=== PATIENT | male | born 1975 | race Caucasian/White ===

== ENCOUNTER 2022-10-17 19:40 | Emergency (ER) | payer OTHER | END 2022-10-17 20:39 | disposition home or self-care (01) | LOC: ED 19:40 | DX: L03.115 Cellulitis of right lower limb (principal); L02.415 Cutaneous abscess of right lower limb ==

== ENCOUNTER 2024-01-04 08:17 | Emergency (ER) | payer OTHER ==
[~2024-01-04] VITALS: Ht 170.2 cm; Wt 70.0 kg
[~2024-01-04 08:17] MED LIST: AMOX TR-K CLV1 EAC1 PO
[2024-01-04 09:06] LABS: EOSINOPHILS 2.6 % (0-6); HEMATOCRIT 43.5 % (35.0-50.0); HEMOGLOBIN 14.5 g/dL (12.0-18.0); LYMPHOCYTES 31.3 % (24-44); MCH 32.3 (27-36); MCHC 33.3 g/dl (30-36); MCV 97.1 fl (81-99); MONOCYTES 8.3 % (0-12); NEUTROPHILS 56.8 % (39-80); PLATELET COUNT 308 K/uL (140-440); RBC 4.48 M/ul (4.3-5.7); RDW 15.9 (10.5-15.0)
[2024-01-04] MEDS ORDERED: LINEZOLID600 MG PO ×2 (09:15→13:34)
[2024-01-04] MEDS ORDERED: ESCITALOPRAM OX20 MG PO (09:15)
[2024-01-04] MEDS ORDERED: HYDROXYZINE PAM25 MG PO (09:15)
[2024-01-04 09:25] LABS: ALBUMIN 3.1 g/dL (3.4-5.0); ALBUMIN/GLOBULIN RATIO 0.67 (1.1-2.4); ANION GAP 10.6 (7-21); BILIRUBIN, TOTAL 0.2 ng/dL (0.2-1.0); BUN/CREATININE RATIO 8.79 (6.0-28.6); CALCIUM 9.4 mg/dL (8.5-10.1); CREATININE, SERUM 0.91 mg/dL (0.70-1.30); POTASSIUM 4.6 mmol/L (3.5-5.1); PROTEIN, TOTAL 7.7 g/dL (6.4-8.2)
[2024-01-04 09:29] LABS: LACTIC ACID, BLOOD 1.2 mmol/L (0.4-2.0)
[2024-01-04 12:00] LABS: CRYSTALS, SYNOVIAL FLUID NONE SEEN; MONONUCLEAR CELLS, SYNOVIAL FL 29; PMNS, SYNOVIAL FLUID 71; RBC, SYOVIAL FLUID 750; WBC, SYNOVIAL FLUID 33750
[2024-01-04 13:45] VITALS: BP 117/70
[2024-01-05 19:35] LABS: GLUCOSE FLUID SOURCE Synovial fluid (()); GLUCOSE,BODY FLUID 80 mg/dL (())
== END 2024-01-04 13:45 | disposition home or self-care (01) ==
LOC: ED 08:17
PROVIDERS: Emergency Medicine
DX: M00.9 Pyogenic arthritis, unspecified (principal); M25.462 Effusion, left knee; I48.91 Unspecified atrial fibrillation; Z79.899 Other long term (current) drug therapy
CPT/HCPCS: 20610; 36415; 73560; 73630; 80053; 82945; 83605; 85025; 85651; 86140; 87070; 87075; 87205; 89051; 89060; 99283-25